=== PATIENT | male | born 1975 | race Caucasian/White ===

== ENCOUNTER 2021-05-27 11:22 | Emergency (ER) | payer OTHER, SELFPAY ==
--- NOTE | ~2021-05-27 | CT_ITS ---
EXAMINATION: CT ABDOMEN AND PELVIS WITH CONTRAST CLINICAL INFORMATION: Left lower quadrant pain. COMPARISON: None TECHNIQUE: Multidetector volumetric images were obtained from the superior aspect of the liver through the pubic symphysis following administration 85 mL of Omnipaque 350 intravenous contrast. Sagittal and coronal reformatted images were obtained on the technologist's workstation. Oral contrast: No This CT examination was performed using dose optimization techniques as appropriate, variously including the following: *Automated exposure control *Adjustment of mA and/or kV according to patient size (this includes techniques or standardized protocols for targeted exams where dose is matched to indication/reason for exam; i.e. extremities or head) *Use of iterative reconstruction technique DLP: 620 mGy-cm FINDINGS: LUNG BASES: The visualized lung bases are unremarkable. LIVER, GALLBLADDER, AND BILIARY TREE: Liver parenchyma has normal attenuation. No focal liver lesion or intrahepatic bile duct dilatation. There is anatomic variation of the liver with an elongated left lobe that contacts the spleen in the left upper quadrant. The gallbladder has a normal appearance. No dilated bile ducts. PANCREAS: Normal. SPLEEN: Normal. ADRENAL GLANDS: Normal. RIGHT KIDNEY AND URETER: The right kidney has several small calyceal stones, all measuring less than 0.4 cm and too small for acquisition of a reliable density measurement. The kidney has normal cortical thickness and attenuation. Small, 0.6 cm simple cyst of the lateral right lower pole. Renal imaging follow-up is not recommended for simple cysts. The right ureter is unremarkable. LEFT KIDNEY AND URETER: The kidney has normal cortical thickness and cortical attenuation. No renal mass. There are small calculi of approximately 0.2 cm size in the upper and lower pole. Mild hydroureteronephrosis and mild perinephric edema are caused by 0.2 x 0.4 cm stone at the level of the ureteral orifice of the ureterovesical junction. BLADDER: The 0.2 x 0.4 cm stone is observed at the level of the left ureteral orifice. Otherwise, urinary bladder is unremarkable. GASTROINTESTINAL TRACT: No dilated bowel loops. The appendix is normal. No inflammatory change or obstruction along the gastrointestinal tract. No ascites or pneumoperitoneum. ABDOMINAL WALL: There is a very small fat-containing umbilical hernia. LYMPH NODES: No pathologic sized lymph nodes. VASCULAR: Abdominal aorta is normal in caliber. Inferior vena cava is normal. PELVIC VISCERA: Prostate gland and seminal vesicles are unremarkable. No pelvic mass or free fluid. OSSEOUS STRUCTURES: The visualized lower thoracic and lumbar vertebra have normal density, height and alignment. No suspicious bone lesions. Incidentally noted is subcortical cystic change/synovial herniation pit formation of the subcapital femoral neck of the right hip. CT/CT abdomen pelvis w con IMPRESSION: * Small bilateral renal calculi are present. * Mild left hydronephrosis and perinephric edema are caused by a stone at the level of the ureterovesical junction.
[2021-05-27 11:25] VITALS: BP 193/98; PULSE 87; RESP 19; TEMP 36.1; O2SAT 98
--- NOTE | 2021-05-27 11:55 | ED_ITS ---
HPI - Abdominal Pain General Chief Complaint: Abdominal Pain Stated Complaint: SEVERE ABD PAIN Time Seen by Provider: 05/27/21 11:54 Source: patient Mode of arrival: ambulatory Limitations: no limitations History of Present Illness HPI narrative: 46-year-old male presenting to the emergency department with severe left lower quadrant pain X2 hrs. He states he got up this morning felt slightly nauseated, and began to have severe abdominal pain to his left lower quadrant, after urination. He states he has not had episodes of vomiting, or diarrhea. Denies changes in bowel habits, chest pain, fevers, chills, shortness of breath, weakness. He states he drinks socially, he did not drink yesterday. He also states that he is from [place] of town. MD elicited complaint: abdominal pain Pertinent past history: none Onset (ago): hour(s) (2) Pain Consistency: constant Location: LLQ Severity: severe Pain scale (0-10): 10 Quality: stabbing Radiation: none Migration to: no migration Exacerbating factors: nothing Relieving factors: nothing Associated symptoms: nausea Related Data Previous Rx's Medication Instructions Recorded morphine 15 mg immediate release 15 mg PO Q6H PRN 3 Days #12 tab 05/27/21 tablet prednisone 20 mg tablet 40 mg PO DAILY 4 Days #8 tab 05/27/21 tamsulosin 0.4 mg capsule (Flomax) 0.4 mg PO BEDTIME #10 cap 05/27/21 Allergies Allergy/AdvReac Type Severity Reaction Status Date / Time No Known Allergies Allergy Verified 05/27/21 11:25 Review of Systems Review of Systems Constitutional : No Weight loss, No Fever, No Chills ENT/Mouth : No sore throat, No Rhinorrhea Eyes: No Swelling, No Redness Cardiovascular : No Chest Pain, No SOB, NoEdema Respiratory : No Cough, No Sputum, No Wheezing Gastrointestinal : Positive Nausea, No Vomiting, No Diarrhea, positive abdominal Pain, No Hematochezia, No Melena Genitourinary : No Dysuria, No Urinary Frequency, No Hematuria, No Urgency Musculoskeletal : No joint pain, No Myalgias, No Joint Swelling Skin : No Skin Lesions, No rash Neuro : No Weakness, No Numbness, No Dizziness, No Headache All other systems reviewed and are negative. Physical Exam Vital Signs: Vital Signs: Last Vital Signs Temp 97.8 F 05/27/21 13:41 Pulse 97 05/27/21 14:48 Resp 20 05/27/21 14:48 BP 164/91 H 05/27/21 14:48 Pulse Ox 97 05/27/21 14:48 Body Mass Index 0.2 Appearance: Alert. Oriented X3. No acute distress. Patient appears uncomfortable Eyes: Pupils equal, round and reactive to light. ENT: Pharynx normal. Neck: Normal inspection. Neck supple. CVS: Normal heart rate and rhythm. Pulses normal. Respiratory: No respiratory distress. Breath sounds normal. Abdomen: Soft and + tenderness to palpation to LLQ. Skin: Skin warm and dry. Normal skin color. Normal skin turgor. Extremities: No lower extremity edema. No calf ttp Neuro: Oriented X 3. No motor deficit. No sensory deficit. Course Course Course Narrative: 1300 If upon re-evaluation, patient still reports pain that is severe in nature. For mg of morphine will be administered at this time. His creatinine is also noted to be 1.51. He will be hydrated with 1L of NS. pain improved, tolerating PO stable for DC MDM - Abdominal Pain MDM Narrative Medical decision making narrative: 46-year-old male known medical history presents to the emergency department with severe left lower quadrant pain, nausea x2 hours. He states he drinks socially, and he has never had any abdominal surgeries in the past. Upon physical examination there is tenderness to palpation to the left lower quadrant. Plan at this time is to obtain basic labs, UA LDH, lipase, liver, magnesium, CT of the abdomen and pelvis with contrast to rule out diverticulitis, and other intra-abdominal etiologies. He will be given fluids, morphine, Zofran, Toradol. Lab Data Result diagrams: 05/27/21 12:23 05/27/21 12:23 Labs: Lab Results 05/27/21 05/27/21 05/27/21 Range/Units 12:23 12:23 14:36 WBC 10.5 (4.8-10.8) X10*3/uL RBC 5.44 (4.60-5.80) X10*6/uL Hgb 17.1 (14.0-18.0) g/dl Hct 47.6 (42-52) % MCV 87.5 (80-98) fL MCH 31.4 (27.0-33.0) pg MCHC 35.9 (31.0-36.0) g/dl RDW 12.5 (11.0-16.0) % Plt Count 215 (160-400) X10*3/uL MPV 9.4 (9.4-12.4) fL Immature Gran % (Auto) 0.4 (0.0-0.4) % Neut % (Auto) 81.6 H (45-73) % Lymph % (Auto) 12.8 L (20-40) % [place] % (Auto) 4.9 (2-11) % Eos % (Auto) 0.1 (0-4) % Baso % (Auto) 0.2 (0-2) % Lymph # (Auto) 1.4 (1.2-4.9) X10*3/uL [place] # (Auto) 0.5 (0.1-1.2) X10*3/uL Eos # (Auto) 0.0 (0.0-0.4) X10*3/uL Baso # (Auto) 0.0 (0.0-0.2) X10*3/uL Abs Immat Gran (auto) 0.04 H (0.00-0.03) X10*3/uL Absolute Neuts (auto) 8.6 H (2.0-8.3) X10*3/uL Absolute Nucleated RBC 0.000 (0.0-0.012) X10*3/uL Nucleated RBC % (auto) 0.0 (0.0-0.2) /100WBC Sodium 137 (135-145) mmol/L Potassium 4.3 (3.3-5.1) mmol/L Chloride 100 (96-108) mmol/L Carbon Dioxide 23 (22-29) mmol/L Anion Gap 18 (12-20) BUN 16 (9-16) mg/dL Creatinine 1.51 H (0.5-1.4) mg/dL Estim Creat Clear Calc 86.2 Estimated GFR 50 Random Glucose 138 H (60-115) mg/dL Calcium 10.3 H (8.4-10.2) mg/dL Magnesium 1.8 (1.6-2.6) mg/dL Total Bilirubin 0.9 (0.0-1.0) mg/dL Direct Bilirubin 0.3 (0.0-0.5) mg/dL AST 16 (5-37) U/L ALT 16 (0-40) U/L Alkaline Phosphatase 55 (39-117) U/L Lactate Dehydrogenase 187 (118-273) U/L Total Protein 8.2 H (6.5-8.0) g/dL Albumin 5.1 H (3.5-5.0) g/dL Lipase 19 (8-78) U/L Urine Color YELLOW Urine Appearance CLEAR Urine pH 6.5 (5.0-8.0) Ur Specific [place] <= 1.005 (1.005-1.025) Urine Protein NEG (NEG-TRACE) MG/DL Urine Glucose (UA) NEG (NEG) MG/DL Urine Ketones NEG (NEG) MG/DL Urine Blood TRACE (NEG) Urine Nitrite NEG (NEG) Ur Leukocyte Esterase NEG (NEG) Urine RBC 1-4 (0) /HPF Urine WBC 0 (0-4) /HPF Ur Squamous Epith Cells NONE /LPF Urine Bacteria NONE /LPF Urine Mucus 1+ /LPF Discharge Plan Discharge Clinical Impression: Bilateral kidney stones, Acute renal insufficiency Patient Disposition: Home, Self-Care Instructions: Dehydration (ED), Kidney Stones (ED) Additional Instructions: Follow-up with primary care provider Take medications as prescribed. Return to the emergency department with new or worsening symptoms Prescriptions: New tamsulosin [Flomax] 0.4 mg capsule 0.4 mg PO BEDTIME Qty: 10 RF: 0 prednisone 20 mg tablet 40 mg PO DAILY 4 Days Qty: 8 RF: 0 morphine 15 mg tablet 15 mg PO Q6H PRN (Reason: pain) 3 Days Qty: 12 RF: 0 Stand Alone Forms: Work/School Release [facility] Past Medical History Attestation statement: The following information was validated with the patient. Source: old records reviewed and nursing notes reviewed Social History Social History Alcohol intake: never Patient Tobacco Use Status: Never used Tobacco Use of substances other than those prescribed or required for medical reasons: No Advance Directives: Yes Advance Directives Information Provided: Yes Advance Directives on File: No
[2021-05-27] MEDS: ondansetron HCL 4 MG/2 ML VIAL IVPUSH (12:25)
[2021-05-27] MEDS: Ketorolac Tromethamine 15 MG/ML VIAL IVPUSH (12:25)
[2021-05-27] MEDS: 0.9 % Sodium Chloride 1,000 ML 999 ML IVCONT ×3 (12:26→13:50)
[2021-05-27] MEDS: Morphine Sulfate 4 MG/ML CARTRIDGE IVPUSH ×2 (12:26→13:49)
[2021-05-27 12:36] LABS: Basophils Percent Auto 0.2 % (0-2); Eosinophils Percent Auto 0.1 % (0-4); Hematocrit 47.6 % (42-52); Hemoglobin 17.1 g/dl (14.0-18.0); Imm Gran Abs Auto 0.04 X10*3/uL (0.00-0.03); Imm Gran Pct Auto 0.4 % (0.0-0.4); Lymphocytes Absolute Auto 1.4 X10*3/uL (1.2-4.9); Lymphocytes Percent Auto 12.8 % (20-40); MANUAL DIFF FLAG NO; Mean Corpuscular HGB Conc 35.9 g/dl (31.0-36.0); Mean Corpuscular Hemoglobin 31.4 pg (27.0-33.0); Mean Corpuscular Volume 87.5 fL (80-98); Mean Platelet Volume 9.4 fL (9.4-12.4); Monocytes Absolute Auto 0.5 X10*3/uL (0.1-1.2); Monocytes Percent Auto 4.9 % (2-11); Neutrophils Absolute Auto 8.6 X10*3/uL (2.0-8.3); Neutrophils Percent Auto 81.6 % (45-73); Platelet Count 215 X10*3/uL (160-400); Red Blood Count 5.44 X10*6/uL (4.60-5.80); Red Cell Distribution Width 12.5 % (11.0-16.0); White Blood Count 10.5 X10*3/uL (4.8-10.8)
[2021-05-27 12:57] LABS: Alanine Aminotransferase 16 U/L (0-40); Albumin Level 5.1 g/dL (3.5-5.0); Alkaline Phosphatase 55 U/L (39-117); Anion Gap 18 (12-20); Aspartate Amino Transferase 16 U/L (5-37); Bilirubin Direct 0.3 mg/dL (0.0-0.5); Bilirubin Total 0.9 mg/dL (0.0-1.0); Blood Urea Nitrogen 16 mg/dL (9-16); Calcium 10.3 mg/dL (8.4-10.2); Carbon Dioxide 23 mmol/L (22-29); Chloride 100 mmol/L (96-108); Creatinine Clr Calc Pharmacy 86.2; Estimated Glomerular Filt Rate 50; Glucose Random 138 mg/dL (60-115); Lipase 19 U/L (8-78); Magnesium 1.8 mg/dL (1.6-2.6); Potassium 4.3 mmol/L (3.3-5.1); Sodium 137 mmol/L (135-145); Total Protein 8.2 g/dL (6.5-8.0)
[2021-05-27 13:00] LABS: Lactate Dehydrogenase 187 U/L (118-273)
[2021-05-27] MEDS: iohexoL 350 MG/ML 100 ML INFUS..BTL 85 ML IV (13:31)
[2021-05-27 13:41] VITALS: BP 158/91; PULSE 97; RESP 17; TEMP 36.6; O2SAT 96
[2021-05-27 13:49] VITALS: RESP 16
[2021-05-27 14:48] VITALS: BP 164/91; PULSE 97; RESP 20; O2SAT 97
[2021-05-27 14:50] LABS: Appearance Urine CLEAR; Color Urine YELLOW; Glucose Urine UA NEG (NEG); Leukocyte Esterase Urine NEG (NEG); Nitrite Urine NEG (NEG); PH 6.5 (5.0-8.0); Specific Gravity - Urine <= 1.005 (1.005-1.025); UACC Culture Trigger NO; Urine Blood TRACE (NEG); Urine Ketones NEG (NEG); Urine Protein NEG (NEG-TRACE)
[2021-05-27] MEDS: methylPREDNISolone Sod Succ 125 MG/2 ML VIAL IVPUSH (14:52)
[2021-05-27] MEDS: Tamsulosin HCL 0.4 MG CAPSULE PO (14:52)
[2021-05-27 14:57] LABS: Mucus Urine 1+ /LPF; WBC Urine 0 /HPF (0-4)
== END 2021-05-27 15:10 | disposition home or self-care (01) ==
PROVIDERS: Emergency Provider Emergency Medicine
DX: N20.0 Calculus of kidney (principal); N28.9 Disorder of kidney and ureter, unspecified
CPT/HCPCS: 36415; 74177; 80048; 80076; 81001; 83615; 83690; 83735; 85025; 96361; 96374; 96375; 96376; 99284; J1885; J2270; J2405; J2930; Q9967